=== PATIENT | female | born 1965 | race Caucasian/White ===

== ENCOUNTER 2021-03-21 09:29 | Emergency (ER) | payer SELFPAY ==
--- NOTE | ~2021-03-21 | US_ITS ---
EXAMINATION: US venous doppler [facility] DATE: 03/21/2021 10:24 INDICATION: Bilateral lower limb swelling TECHNIQUE: Bauman scale images without and with compression and Doppler images of the bilateral lower e xtremity veins were obtained. COMPARISON: None FINDINGS: The right common femoral vein, profunda femoral vein, femoral vein, popliteal vein, peroneal trunk, p osterior tibial veins, and greater saphenous vein are patent. The left common femoral vein, profunda femoral vein, femoral vein, popliteal vein, peroneal trunk, po sterior tibial veins, and greater saphenous vein are patent. IMPRESSION: 1. Patent bilateral lower extremity veins. No evidence of deep venous thrombosis. Reviewed, dictated and finalized at location A. [employer] TECHNICIAN IMPRESSION: 1. Patent bilateral lower extremity veins. No evidence of deep venous thrombosi s.
[2021-03-21 09:40] VITALS: BP 147/83; PULSE 86; RESP 18; TEMP 36.6; O2SAT 98
--- NOTE | 2021-03-21 09:52 | ED.EXTPRO ---
HPI - Extremity Problem General Chief complaint: Skin/Abscess/Foreign Body Stated complaint: R Leg swelling Time Seen by Provider: 03/21/21 09:52 Source: patient Mode of arrival: ambulatory Limitations: no limitations History of Present Illness HPI Narrative: 55-year-old woman with a history of smoking, hypertension and hyperlipidemia comes in today complaining of sores, redness and swelling that have been on her lower legs, mostly the right, since October. Patient states that the lesion on her lateral right ankle started after she was bit by a mosquito. She had an episode of vomiting last night but has had no fever, night sweats, weight loss, chest pain, shortness of breath,laudication symptoms, or prior similar symptoms. She has 1 small lesion on her left lower leg. Her swelling and redness improved in the last day or 2 after she started taking her 's amoxicillin Complaint: extremity swelling Onset (ago): month(s) (5) Pain Consistency: constant Location: left, right and lower extremity Quality: burning Radiation: none Relieving factors: nothing Exacerbating factors: nothing Related Data Home Medications Medication Instructions Recorded Confirmed cholecalciferol (vitamin D3) 25 25 mcg PO DAILY 07/20/19 03/21/21 mcg (1,000 unit) capsule omeprazole 10 mg capsule,delayed 10 mg PO DAILY 07/20/19 03/21/21 release Allergies Allergy/AdvReac Type Severity Reaction Status Date / Time Penicillins Allergy Unknown swelling Verified 01/18/20 10:37 Review of Systems Review of Systems: All systems reviewed & are unremarkable except as noted in HPI and below Constitutional: Constitutional: Denies chills and Denies fever(s) ENT: Denies nasal congestion and Denies sore throat Cardiovascular: Cardiovascular: Denies chest pain and Denies radiating jaw, neck or arm pain Respiratory: Respiratory: Denies cough, Denies dyspnea and Denies wheezing Gastrointestinal: Gastrointestinal: Denies abdominal pain, Denies diarrhea, Denies nausea and Denies vomiting Musculoskeletal: Musculoskeletal: Reports arthralgias ( chronic right knee pain) and Denies joint swelling Integumentary/Breasts: Skin/Breast: Denies pruritus, Denies erythema and Denies rash Neurologic: Denies vertigo, Denies dizziness, Denies syncope and Denies focal weakness Hematologic/Lymphatic: Hematologic/Lymphatic: Denies easy bleeding and Denies easy bruising PMFSH Past Medical History Medical History Anxiety Chronic pain GERD (gastroesophageal reflux disease) Hyperlipidemia Hypertension Hypothyroidism Post-menopausal Vitamin D deficiency Family History Family History Grandparent Diabetes mellitus Social History Social History Smoking packs per day: 1 Smoking cigarettes per day: 20.0 Smoking status: Current every day smoker Alcohol intake: current Exam Const: General: healthy appearing, no acute distress and alert Orientation/consciousness: patient oriented x3 Limitations: no limitations HENMT: Head: normal to inspection Ears: external ears normal, TM's normal bilaterally and EAC's normal General nose exam: Normal nares present Face and sinus: normal facial exam Mouth: Yes moist mucous membranes Throat: posterior oropharynx normal Eyes: Conjunctivae: conjunctivae normal Pupils: Equal, round and reactive pupils present EOM: EOMs intact bilaterally Resp: Effort & Inspection: normal respiratory effort and not labored Auscultation: clear to auscultation bilaterally, no rales, no rhonchi and no wheezes Cardio: Rate: regular rate Rhythm: regular rhythm Heart sounds: no murmurs Skin: General skin exam: normal color, no jaundice and no pallor Other: Right lower extremity has 0.5-3 cm diameter slightly eroded lesions below the knee. There is some scale near the p
[2021-03-21 10:21] LABS: Basophils Absolute Auto 0.11 K/mm3 (0.00-0.10); Basophils Percent Auto 1.1 % (0.0-1.0); Eosinophils Absolute Auto 0.44 K/mm3 (0.02-0.50); Eosinophils Percent Auto 4.4 % (1.0-6.0); Hematocrit 37.6 % (35.0-49.0); Hemoglobin 12.7 g/dL (12.0-15.0); Immature Granulocyte Absolute 0.04 K/mm3 (0.00-0.00); Immature Granulocyte Percent A 0.4 % (0.0-0.0); Lymphocytes Absolute Auto 1.85 K/mm3 (1.10-4.50); Lymphocytes Percent Auto 18.7 % (18.0-42.0); Mean Corpuscular HGB Conc 33.8 g/dL (32.0-36.0); Mean Corpuscular Hemoglobin 29.7 pg (27.0-31.0); Mean Corpuscular Volume 87.9 fL (78.0-102.0); Mean Platelet Volume 9.3 fl (9.2-11.8); Monocytes Absolute Auto 1.08 K/mm3 (0.10-0.90); Monocytes Percent Auto 10.9 % (2.0-11.0); Neutrophils Absolute Auto 6.4 K/mm3 (1.7-7.2); Neutrophils Percent Auto 64.5 % (50.0-70.0); Platelet Count Result 445 K/mm3 (150-420); Red Blood Count 4.28 M/mm3 (4.20-5.40); Red Cell Distribution Width 14.6 % (11.6-14.4); White Blood Count 9.9 K/mm3 (4.8-10.8)
[2021-03-21 10:33] LABS: Prothrombin Time 10.5 Seconds (9.50-12.10)
[2021-03-21 10:36] LABS: Alanine Aminotransferase 31 U/L (14-59); Albumin Level 4.3 g/dL (3.4-5.0); Alkaline Phosphatase 110 U/L (46-116); Anion Gap 11 mmol/L (8-16); Aspartate Amino Transferase 27 U/L (15-37); Bilirubin,Total 0.6 mg/dL (0.00-1.00); Blood Urea Nitrogen 14 mg/dL (7-18); CRP 0.6 mg/dL (0.0-0.9); Calcium 9.1 mg/dL (8.5-10.1); Carbon Dioxide 28 mmol/L (21-32); Chloride 102 mmol/L (98-108); Estimated CRCL calculation 63 ml/min; Estimated Glomerular Filt Rate > 60; Glucose 94 mg/dL (70-99); Osmolality Calculated 292 mOsm/kg (285-295); Potassium 3.7 mmol/L (3.5-5.1); Sodium 141 mmol/L (136-145); Total Protein 7.9 g/dL (6.4-8.2)
[2021-03-21 11:09] VITALS: BP 147/83; PULSE 83; RESP 20; TEMP 36.6; O2SAT 97
[2021-03-21 11:19] LABS: Erythrocyte Sedimentation Rate 16 mm/hr (0-20)
== END 2021-03-21 11:23 | disposition home or self-care (01) ==
PROVIDERS: Emergency Provider Emergency Medicine; PCP Internal Medicine
DX: L03.115 Cellulitis of right lower limb (principal)
CPT/HCPCS: 36415; 80053; 85025; 85610; 85652; 85730; 86140; 93970; 99283; 99284

== ENCOUNTER 2024-10-13 10:46 | Outpatient (CLI) | payer OTHER, SELFPAY ==
--- NOTE | ~2024-10-13 | CT_ITS ---
CT Scan of the Chest without Contrast: Clinical Indication: Lung cancer screening, nicotine dependence Technique: Contiguous sections were acquired throughout the chest without intravenous contrast. Dose reduction technique was used on this scan by utilizing automated exposure control and iterative recon struction technique. The dose-length product (DLP) was 61.98 mGy-cm. Findings: There is no evidence of any significant mediastinal, hilar or axillary lymphadenopathy. The mediastin al soft tissues appear normal. There is no evidence of pleural or pericardial effusion. 3 mm right basilar pulmonary nodule present (axial image 102). 3 mm lingular nodule present (axial im age 80). Images through the upper abdomen reveal no abnormalities. Impression: Lung RADS 2: Benign appearance. 12 month follow-up screening CT advised. Reviewed, dictated and finalized at location . Impression: Lung RADS 2: Benign appearance. 12 month follow-up screening CT advised.
--- OUTSIDE RECORDS SUMMARY | 2024-10-13 10:55 | XMS_ITS | Clinical Summary ---
Author Organization [facility] Address [address] [place] [address] Care Team Providers Care Community Associate Name Role Phone Johnny Adam DO Primary Care Provider [phone] Allergies No known active allergies Medications amLODIPine (NORVASC) 10 MG tablet Take 1 tablet (10 mg total) by mouth daily. 11/27/2021 Active citalopram (CELEXA) 40 MG tablet Take 1 tablet (40 mg total) by mouth daily. 11/27/2021 Active levothyroxine (SYNTHROID) 75 MCG tablet Take 1 tablet (75 mcg total) by mouth daily. 07/23/2021 Active pravastatin (PRAVACHOL) 40 MG tablet Take 1 tablet (40 mg total) by mouth daily. 04/21/2021 Active omeprazole (PRILOSEC) 20 MG capsule Take 1 capsule (20 mg total) by mouth daily. Active lisinopril (PRINIVIL) 5 MG tablet Take 1 tablet (5 mg total) by mouth daily. 05/14/2022 Active Vitamin D3 (VITAMIN D) 50 mcg tablet Take 1 tablet (50 mcg total) by mouth daily. Active atorvastatin (LIPITOR) 10 MG tablet Take 1 tablet (10 mg total) by mouth nightly at bedtime. Active Active Problems Problem Noted Date Diagnosed Date Low back pain 04/08/2023 Lumbago with sciatica 04/08/2023 Radiculopathy, cervical 07/31/2022 Overview (07/31/2022): Added automatically from request for surgery [id number] Cervical pain 05/11/2022 Social History Tobacco Use Types Packs/Day Years Used Date Smoking Tobacco: Every Day Cigarettes 1 30 Smokeless Tobacco: Never Tobacco Cessation:Ready to Q uit: No; Counseling Given: Not Answered Alcohol Use Standard Drinks/Week Comments Yes 0 (1 standard drink = 0.6 oz pur e alcohol) weekends 4-5 cockails Comments No Sex and Gender Information Value Date Recorded Sex Assigned at Not on file Legal Sex Female 7:14 PM CDT Gender Identity Not on file Sexual Orientation Not on file Last Filed Vital Signs Vital Sign Reading Time Taken Comments Blood Pressure 139/81 02/19/2023 5:20 PM [employer] STRA[employer] Pulse 71 02/19/2023 5:20 PM [employer] Temperature 36.3 C (97.4 F) 02/19/2023 1:44 PM [employer] Respiratory Rate 16 02/19/2023 1:44 PM [employer] STRA[employer]ENER Oxygen Saturation 96% 02/19/2023 5:20 PM [employer] STRA[employer]ENER Inhaled Oxygen Concentration - - Weight 65.8 kg (145 lb) 02/19/2023 1:44 PM [employer] Height 177.8 cm (5' 10) 02/19/2023 1:44 PM [employer] [employer] Body Mass Index 20.81 02/19/2023 1:44 PM [employer] STRAIGHTENER Plan of Treatment Health Maintenance Due Date Last Done Comments Cervical Cancer Screening Pa p Smear (Age 30 to 64) Every 3 Years 1963 Colorectal Cancer Screening Colonoscopy (10 Years) 1965 Annual Physical 09/02/1966 DTaP, Tdap and Td Vaccines ( 1 - Tdap) 09/02/1982 Pneumococcal Vaccine: 50+ Ye ars (1 of 2 - PCV) 09/02/1982 Cervical Cancer Screening Pa p with HPV Testing (Age 30 to 64) Every 5 Years 09/02/1993 Cervical Cancer Screening with HPV 09/02/1993 Zoster Vaccines (1 of 2) 09/02/2013 COVID-19 Vaccine (2023-2 5 season) 2023 Mammogram Screening 09/13/2025 09/14/2023 RSV Immunization or 60+ Years (1 - 1-dose 75+ series) 09/02/2038 Hepatitis C Completed 09/14/2023 Meningococcal B Vaccine Aged Out No l onger eligible based on patient's age to complete this topic Meningococcal Vaccine Aged Out No farzaneh alex eligible based on patient's age to complete this topic RSV Immunizations Under 20 Months Aged Out No longer eligible based on patient's age to complete this topic Procedures Procedure Name Priority Date/Time Associated Diagnosis Comments HEPATITIS C ANTIBODY Routine 09/14/2023 9:49 AM CDT Hypothyroidism, unspecified Abnormal weight loss Other fatigue MG SCREENING W LUZ CHINTAN DIGI Routine 09/14/2023 9:28 AM CDT Visit for screening mammogram from Last 3 Months or Most Recently Relevant to Health Maintenance Results * HEPATITIS C ANTIBODY (09/14/2023 9:49 AM CDT) HEPATITIS C AB NON-REACTI VE NON-REACT VENANCIO 09/14/2023 6:55 PM CDT [facility] Comment: ANTIBODIES TO HCV NOT DETECTED. DOES NOT EXCLUDE THE POSSIBILITY OF EXPOSURE TO HCV. 09/14/2023 9:49 AM CDT Jennifer Camejo [employer] [facility] Final Result [facility] [address] [place] [address], [id number] * MG SCREENING W LUZ CHINTAN DIGI (09/14/2023 9:28 AM CDT) Anatomical Region Laterality Modality Breast Bilateral Mammography 09/14/2023 2:05 PM CDT Impressions 09/14/2023 2:05 PM CDT IMPRESSION: No mammographic features to suggest malignancy on new baseline study. In the absence of clinical symptoms, return for annual screening mammogram due in 1 year. RECOMMENDATION: Routine Screening, Bilateral Mammogram in 1 year Clinical discussion based upon her age and personal risk factors is recommended for the following: Annual mammogram plus supplemental screening is encouraged for dense breast tissue patients, especially for those with greater than 20% lifetime risk of breast cancer. Highest sensitivity and cancer detection rate is supplemental screening with MRI breast with/without IV gadolinium contrast. Recommend alternate 6 months apart between MRI and mammogram for screening. If she cannot tolerate or get approval of MRI, then breast ultrasound screening is an alternative. ASSESSMENT: ACR BI-RADS 1 - NEGATIVE Ordered By: IAM CAMEJO Interpreted By: Cristiano Damon MD, 09/14/2023 2:05 PM Narrative 09/14/2023 2:05 PM CDT EXAMINATION: BILATERAL SCREENING MAMMOGRAPHY Exam Date: 09/14/2023 8:27 AM CLINICAL INDICATION: 58 years of age female routine screening. COMPARISON: None TECHNIQUE: Digital CC & MLO views. Tomosynthesis imaging acquisition Study read with the assistance of a computer-aided detection system. TISSUE DENSITY: The breast tissue is heterogeneously dense, which may obscure small masses. FINDINGS: Symmetric appearing bilateral dense breast tissue. No suspicious grouping of microcalcifications, architectural distortion, or any suspicious nodule 3 dimensionally demonstrated in either breast. Jennifer Camejo [employer] [facility] Final Result from Last 3 Months or Most Recently Relevant to Health Maintenance Insurance [employer] Care Teams Community Associate Relationship Specialty Start Date End Date Johnny Adam DO [id number] [facility] [address] [place] [address] PCP - General INTERNAL MEDICINE 01/07/22
== END 2024-10-13 10:47 | disposition home or self-care (01) ==
PROVIDERS: PCP Internal Medicine; Visit Provider Clinical Nurse Specialist
DX: Z12.2 Encounter for screening for malignant neoplasm of respiratory organs (principal); F17.210 Nicotine dependence, cigarettes, uncomplicated
CPT/HCPCS: 71271